=== PATIENT | male | born 1990 | race Caucasian/White ===

== ENCOUNTER 2020-06-06 07:02 | Emergency (ER) | payer SELFPAY ==
[2020-06-06 07:03] VITALS: BP 145/86; PULSE 85; RESP 19; TEMP 36.7; O2SAT 98; BMI 20.9
--- NOTE | 2020-06-06 07:21 | HMH.EDDENT ---
ED Disposition Clinical Impression: Toothache, Dental caries Disposition: Home, Self-Care Condition on Discharge: Good Instructions: DI for Dental Pain Additional Instructions: Keep your appointment with the dentist tomorrow and recommend routine Tylenol and ibuprofen to stay ahead of the pain. Return to the ED for any new or worsening symptoms including facial swelling fever or difficulty swallowing. Referrals: Moy Cowan [Primary Care Provider] - Time of Disposition: 07:29 - Critical Care Critical Care Time: No Attestation: On 06/06/20, the high probability of a clinically significant, sudden or life threatening deterioration of the following system(s) required my full and direct attention, intervention and personal management. The time I documented below is in addition to time spent performing reported procedures but includes the following listed in this critical care notation. Medical Decision Making - Medical Records Medical records reviewed: Yes: I reviewed the patient's medical records. - Burt Inquiry Pt receiving controlled substance: No Vital Signs: 06/06/20 07:03 Temperature 98.0 F Temperature Source Oral Pulse Rate [Right Brachial] 85 Respiratory Rate 19 Blood Pressure [Right Arm] 145/86 H Blood Pressure Mean [Right Arm] 105 Blood Pressure Source [Right Arm] Automatic Cuff 02 Sat by Pulse Oximetry 98 Oxygen Delivery Method Room Air Medical Decision Narrative: 29-year-old male who presents with dental pain from a fractured tooth. Scheduled to see a dentist tomorrow. He has no evidence of abscess either periodontal odontogenic or facial. Patient is overall well-appearing and nontoxic. A bupivacaine dental block was performed and he was given 1 Alzada for pain relief. He was discharged in good condition and instructed to keep his follow-up for the dentist tomorrow Dental HPI - General Chief complaint: Dental/Oral Stated complaint: dental pain Time Seen by Provider: 06/06/20 07:22 Mode of Arrival: Ambulatory Source of Information: Patient Limitations: No Limitations Description of Symptoms (Recalled from ER Triage Doc. by RN): Pt states he has had left, lower back molar (#18) tooth pain since last Friday. Pt has seen a dentist and is scheduled for a root canal tomorrow, however was unable to handle the pain. Pt descbies the pain as sharp, rates 8/10 on CHOIR LEADER, and causing him to not be able to rest. Pt denies any fever. - History of Present Illness HPI Narrative: Left molar tooth pain since last Friday. He has been using filler as instructed in the broken tooth. Still having severe pain at its 8 out of 10 inhibiting his sleep. Denies facial swelling difficulty swallowing or change in voice. No drainage from the tooth. Denies fever chills and body aches. Been using Advil at home for pain relief. Scheduled to see a dentist tomorrow Onset (ago): day(s) Duration: constant Severity: severe Severity scale (1-10): 8 Relieving factors: NSAIDs Exacerbating factors: chewing Context: history of dental caries, poor dental care - Related Data Allergies Allergy/AdvReac Type Severity Reaction Status Date / Time NO KNOWN ALLERGIES - NKA Allergy Mild Uncoded 03/04/17 14:51 [facility] History - Hepatitis A Screen Drug use history?: No High risk sexual behaviors?: No History of sexually transmitted infection?: No Currently employed?: No Childcare worker?: No Do you have indoor plumbing?: Yes Do you have electricity?: Yes Attestation statement:: This patient has been screened for Hepatitis A risk factors. I have reviewed the patient's past medical history: Yes (Denies significant past medical history) ROS Obtained: Yes Systems reviewed as appropriate & no additional complaints Physical Exam - General General appearance: alert, in no apparent distress - Head Head exam: atraumatic, normocephalic - Eye Eye exam: Present: normal appearance - ENT ENT exam: Present: other (
[2020-06-06 07:54] VITALS: BP 140/85; PULSE 87; RESP 18; TEMP 36.7; O2SAT 98
== END 2020-06-06 07:58 | disposition home or self-care (01) ==
PROVIDERS: Emergency Provider Student in an Organized Health Care Education/Training Program; PCP Internal Medicine
DX: K03.81 Cracked tooth (principal); S02.5XXA Fracture of tooth (traumatic), initial encounter for closed fracture; K02.9 Dental caries, unspecified
CPT/HCPCS: 64450; 99281

== ENCOUNTER 2020-06-06 20:55 | Emergency (ER) | payer SELFPAY ==
[2020-06-06 21:02] VITALS: BP 126/76; PULSE 115; RESP 14; TEMP 36.8; O2SAT 98; BMI 22.4
[2020-06-06 21:17] VITALS: BP 112/78; PULSE 112; RESP 18; TEMP 37.1; O2SAT 97; BMI 25.1
--- NOTE | 2020-06-06 21:59 | HMH.EDDENT ---
ED Disposition Clinical Impression: Dental abscess Disposition: Home, Self-Care Condition on Discharge: Good Instructions: DI for Dental Pain Additional Instructions: keep appt with dentist in am Referrals: Moy Cowan [Primary Care Provider] - - Critical Care Critical Care Time: No Attestation: On 06/06/20, the high probability of a clinically significant, sudden or life threatening deterioration of the following system(s) required my full and direct attention, intervention and personal management. The time I documented below is in addition to time spent performing reported procedures but includes the following listed in this critical care notation. Medical Decision Making - Medical Records Medical records reviewed: Yes: I reviewed the patient's medical records. - Burt Inquiry Pt receiving controlled substance: No Vital Signs: 06/06/20 21:02 06/06/20 21:17 Temperature 98.3 F 98.8 F Temperature Source Oral Oral Pulse Rate [Right] 115 H 112 H Respiratory Rate 14 18 Blood Pressure [Right Arm] 126/76 112/78 Blood Pressure Mean [Right Arm] 92 89 Blood Pressure Source [Right Arm] Automatic Cuff Automatic Cuff Blood Pressure Position [Right Arm] Sitting Sitting 02 Sat by Pulse Oximetry 98 97 Oxygen Delivery Method Room Air Medical Decision Narrative: pt has lt mandibular swelling - i feel is most consistent related to dental linfection and not allergic reaction - however pt has appt in dentist in am and is medically stable and on abx Dental HPI - General Chief complaint: Dental/Oral Stated complaint: mOUTH SWOLLEN, POSSIBLE DUE TO MEDICATION Time Seen by Provider: 06/06/20 21:59 Mode of Arrival: Ambulatory Source of Information: Patient, Medical Record Limitations: No Limitations Description of Symptoms (Recalled from ER Triage Doc. by RN): Pt was here this AM and received an injection of Bupivacaine in his left lower gum and has slowly swollen throughout the day. Pt has an appointment tomorrow with a dentist. - History of Present Illness HPI Narrative: swelling lt lower mandible which started this am - pt has appt with dentist in am - pt concerned that swelling could be from local injection last pm - no other allergic sx - no tongue swelling /hives - no airway issues - on abx Onset (ago): hour(s) Duration: other (more swollen than earlier) Severity: moderate Relieving factors: prescription analgesics Context: other (possbile dental infection ) - Related Data Home Medications Medication Instructions Recorded Confirmed No Known Home Medications 06/06/20 06/06/20 Allergies Allergy/AdvReac Type Severity Reaction Status Date / Time NO KNOWN ALLERGIES - NKA Allergy Mild Uncoded 03/04/17 14:51 [facility] History - Hepatitis A Screen Drug use history?: No High risk sexual behaviors?: No History of sexually transmitted infection?: No Currently employed?: No Childcare worker?: No Do you have indoor plumbing?: Yes Do you have electricity?: Yes Attestation statement:: This patient has been screened for Hepatitis A risk factors. I have reviewed the patient's past medical history: Yes Medical History: Denies:: Cancer, Diabetes Mellitus Type 1, Diabetes Mellitus Type 2, MRSA Laterality Cases: Right: Other Fractures: Yes - Social History Smoking Status: Current every day smoker # Packs/Day (cigarettes): 1 Alcohol Intake: current Alcohol Intake Frequency:: a few times a month Occupational Status: employed Housing: house Household Members: children ROS Obtained: Yes All systems reviewed & no additional complaints - Constitutional Constitutional: Denies fever(s) - Eyes Eyes: Denies change in vision - ENT Ears, Nose, Mouth, and Throat: Reports as per HPI, Reports dental pain - Cardiovascular Cardiovascular: Denies chest pain - Respiratory Respiratory: Denies shortness of breath - Gastrointestinal Gastrointestingal: Denies: abdominal pain - Genitourinary Male
[2020-06-06 22:16] VITALS: BP 118/56; PULSE 102; RESP 16; TEMP 37.1; O2SAT 99
== END 2020-06-06 22:18 | disposition home or self-care (01) ==
LOC: UTC 21:01 → ER 21:13
PROVIDERS: Emergency Provider Emergency Medicine; PCP Internal Medicine
DX: K04.7 Periapical abscess without sinus (principal); F17.210 Nicotine dependence, cigarettes, uncomplicated
CPT/HCPCS: 99282

== ENCOUNTER → 2020-12-07 17:46 | Outpatient (CLI) | payer SELFPAY | PROVIDERS: PCP Internal Medicine; Visit Provider Nurse Practitioner | DX: Z20.822 Contact with and (suspected) exposure to COVID-19 (principal); U07.1 COVID-19 | CPT/HCPCS: C9803; U0003; U0005 ==

== ENCOUNTER → 2021-02-23 14:16 | Outpatient (CLI) | payer SELFPAY | LOC: HMH.CTC 14:17 | PROVIDERS: PCP Internal Medicine; Visit Provider Nurse Practitioner | DX: U07.1 COVID-19 (principal) | CPT/HCPCS: C9803; U0003; U0005 ==

== ENCOUNTER 2021-07-18 19:32 | Emergency (ER) | payer OTHER, SELFPAY ==
[2021-07-18 19:39] VITALS: BMI 21.5
[2021-07-18 19:40] VITALS: BP 118/78; PULSE 78; RESP 18; TEMP 36.8; O2SAT 99; BMI 24.0
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
[2021-07-18 20:15] VITALS: BP 118/78; PULSE 78; RESP 18; TEMP 36.8; O2SAT 99
== END 2021-07-18 20:25 | disposition home or self-care (01) ==
PROVIDERS: Emergency Provider Nurse Practitioner; PCP Internal Medicine
DX: S62.339A Displaced fracture of neck of unspecified metacarpal bone, initial encounter for closed fracture (principal)
CPT/HCPCS: 29125; 73110; 73130; 99212; G0463

== ENCOUNTER → 2021-07-24 09:34 | Outpatient (CLI) | payer OTHER, SELFPAY ==
--- NOTE | 2021-07-24 09:37 | XR_ITS ---
FINAL REPORT CLINICAL HISTORY: rt hand pain, F/U SURGERY COMPARISON: 07/18/2021 FINDINGS: RIGHT HAND Three views were obtained. There are postoperative changes in the proximal 1st metacarpal. There is a comminuted fracture of the proximal 5th metacarpal with intra-articular extension. The bony alignment is stable. There are postoperative changes in the distal forearm which is stable. IMPRESSION: Postoperative and chronic appearing findings as detailed above. Reviewed, Interpreted and Dictated by Kwabena Garcia III, MD Transcribed by Marcy Dunlap Authenticated by Kwabena Garcia III, MD on 07/24/2021 11:03:21 AM [facility]
== END ==
PROVIDERS: PCP Internal Medicine; Visit Provider Orthopaedic Surgery
DX: S62.339A Displaced fracture of neck of unspecified metacarpal bone, initial encounter for closed fracture (principal)
CPT/HCPCS: 73130

== ENCOUNTER → 2021-08-07 10:56 | Outpatient (CLI) | payer OTHER, SELFPAY ==
--- NOTE | 2021-08-07 11:00 | XR_ITS ---
FINAL REPORT CLINICAL HISTORY: rt hand injury COMPARISON: July 24, 2021 FINDINGS: AP, lateral and oblique views of the right hand were obtained. There is postoperative change of the base of the 1st metacarpal. Hardware is stable. There is no significant change in a comminuted fracture of the base of the 5th metacarpal. The joint spaces are preserved. The soft tissues are normal. IMPRESSION: No change in the comminuted fracture of the base of the 5th metacarpal. Reviewed, Interpreted and Dictated by Alannah Conner MD Transcribed by Max Roew Authenticated by Alannah Conner MD on 08/07/2021 01:19:11 PM [facility]
== END ==
PROVIDERS: PCP Internal Medicine; Visit Provider Physician Assistant Surgical
DX: S62.346D Nondisplaced fracture of base of fifth metacarpal bone, right hand, subsequent encounter for fracture with routine healing (principal)
CPT/HCPCS: 73130

== ENCOUNTER 2021-08-11 18:47 | Emergency (ER) | payer OTHER, SELFPAY ==
[2021-08-11 18:55] VITALS: RESP 18; TEMP 36.7; O2SAT 98; BMI 21.8
--- NOTE | 2021-08-11 20:45 | HMH.EDUTC ---
[place] Disposition Clinical Impression: Laceration of finger Qualifiers: Encounter type: initial encounter Finger: little finger Damage to nail status: without damage Foreign body presence: without foreign body Laterality: left Qualified Code(s): S61.217A - Laceration without foreign body of left little finger without damage to nail, initial encounter Disposition: Home, Self-Care Condition on Discharge: Good Instructions: DI for Laceration Repair Additional Instructions: Keep wound clean and dry. Watch for signs of infection Follow up with Dr Cowan in the next 2-3 days to recheck range of motion/strength and rule out tendon injury Referrals: Moy Cowan MD [Primary Care Provider] - Time of Disposition: 20:51 Medical Decision Making - Burt Inquiry Pt receiving controlled substance: No Vital Signs: 08/11/21 18:55 Temperature 98.0 F Temperature Source Oral Respiratory Rate 18 02 Sat by Pulse Oximetry 98 Oxygen Delivery Method Room Air [place] HPI - General Stated complaint: AO 08/11@1830 lac to left pinky finger Time Seen by Provider: 08/11/21 19:45 Mode of Arrival: Ambulatory Source of Information: Patient Limitations: No Limitations Description of Symptoms (Recalled from Triage Doc. by RN): PATIENT C/O LACERATION TO LEFT PINKY FINGER HEENT Symptoms (Recalled from RN notes): No Resp Symptoms (Recalled from RN notes): No Skin Symptoms (Recalled from RN notes): Yes MS Symptoms (Recalled from RN notes): No Functional Status (Recalled from RN notes): WNL - History of Present Illness Provider Complaint: Laceration left pinky finger. Patient was getting olive oil out of cabinet above head when glass bottle fell. He tried to grab it as it broke, slicing his left pinky finger. He believes he had a tetanus shot when his son's mother was with him 3 years ago. Onset (ago): hour(s) (2) Location: left, upper extremity Relieving factors: none Exacerbating factors: none Associated symptoms: denies other symptoms Treatments prior to arrival: none - Related Data Previous Rx's Medication Instructions Recorded Ibuprofen [Ibuprofen 800mg 800 mg PO TIDP PRN #20 tab 07/18/21 Tablet] Allergies Allergy/AdvReac Type Severity Reaction Status Date / Time No Known Allergies Allergy Verified 08/07/21 11:48 - Worker's Comp Is this a Worker's Comp case?: No [facility] History - Hepatitis A Screen Attestation statement:: This patient has been screened for Hepatitis A risk factors. I have reviewed the patient's past medical history: Yes Medical History: Denies:: Cancer, Diabetes Mellitus Type 1, Diabetes Mellitus Type 2, MRSA Laterality Cases: Right: Other Fractures: Yes - Social History Smoking Status: Current every day smoker # Packs/Day (cigarettes): 1 Alcohol Intake: current Alcohol Intake Frequency:: a few times a month Occupational Status: employed Housing: house Household Members: children ROS Obtained: Yes All systems reviewed & no additional complaints - Integumentary/Breasts Skin/Breast: Reports as per HPI, Reports other (laceration left pinky finger, palmar surface) Physical Exam - General General appearance: alert, in no apparent distress - Head Head exam: normocephalic - Chest Chest inspection: Present: normal inspection, symmetric chest wall rise - Respiratory Respiratory exam: Present: normal lung sounds bilaterally. Absent: respiratory distress - Cardiovascular Cardiovascular exam: Present: regular rate, normal rhythm - Expanded Upper Extremity Exam Left Hand exam: Present: laceration (palmar surface, 2 cm, DIP joint) Neuromotor exam: Normal: thumb IP flexion, thumb adduction Vascular exam: Normal: capillary refill, radial pulse, ulnar pulse Comment: Copious bleeding Decreased flexion of distal phalange at DIP joint - Neurological Exam Neurological exam: Present: alert, oriented X3 - Psychiatric Psychiatric exam: Present: normal aff
[2021-08-11 20:49] VITALS: BP 0/0; PULSE 90; RESP 18; TEMP 36.7; O2SAT 98
== END 2021-08-11 21:01 | disposition home or self-care (01) ==
PROVIDERS: Emergency Provider Physician Assistant; PCP Internal Medicine
DX: S61.217A Laceration without foreign body of left little finger without damage to nail, initial encounter (principal); W26.0XXA Contact with knife, initial encounter; Z72.0 Tobacco use
CPT/HCPCS: 12001; 99213; G0463

== ENCOUNTER 2021-08-16 14:04 | Outpatient (RCR) | payer OTHER, SELFPAY ==
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
== END 2021-08-16 14:05 | disposition home or self-care (01) ==
LOC: PT 14:04
PROVIDERS: Visit Provider Orthopaedic Surgery
DX: S62.346D Nondisplaced fracture of base of fifth metacarpal bone, right hand, subsequent encounter for fracture with routine healing (principal)
CPT/HCPCS: 97163

== ENCOUNTER → 2021-09-04 10:04 | Outpatient (CLI) | payer OTHER, SELFPAY ==
--- NOTE | 2021-09-04 10:10 | XR_ITS ---
FINAL REPORT CLINICAL HISTORY: hand fracture COMPARISON: August 07, 2021 FINDINGS: RIGHT HAND: 3 views of the right hand were obtained. There is a comminuted fracture of the proximal 5th metacarpal. The fracture line extends into the joint. There are postoperative changes of the proximal 1st metacarpal which is stable. The bony alignment is stable. There is no significant callus formation. There is medial hand soft tissue swelling. There are postoperative changes of the distal forearm. IMPRESSION: Intra-articular fracture of the proximal 5th metacarpal. No significant callus formation. Reviewed, Interpreted and Dictated by Kwabena Garcia III, MD Transcribed by Tresa Villela Authenticated and [facility]
== END ==
PROVIDERS: PCP Internal Medicine; Visit Provider Physician Assistant Surgical
DX: S62.306D Unspecified fracture of fifth metacarpal bone, right hand, subsequent encounter for fracture with routine healing (principal)
CPT/HCPCS: 73130

== ENCOUNTER → 2021-10-16 12:49 | Outpatient (CLI) | payer OTHER, SELFPAY ==
--- NOTE | 2021-10-16 12:53 | XR_ITS ---
FINAL REPORT CLINICAL HISTORY: fracture FOLLOW-UP COMPARISON: 09/04/2021 FINDINGS: Right hand Three views were obtained. There is fracture at the proximal aspect of the 5th metacarpal. There is bony fusion in the more lateral aspect of the fracture. There is lack of bony union in the medial aspect. There are postoperative changes in the 1st metacarpal and distal forearm. Mild degenerative changes are present. No soft tissue abnormality is identified. IMPRESSION: Fracture as above. Reviewed, Interpreted and Dictated by Kwabena Garcia III, MD Transcribed by Marcy Dunlap Authenticated and [facility]
== END ==
PROVIDERS: PCP Internal Medicine; Visit Provider Physician Assistant Surgical
DX: S62.306D Unspecified fracture of fifth metacarpal bone, right hand, subsequent encounter for fracture with routine healing (principal)
CPT/HCPCS: 73130

== ENCOUNTER → 2021-11-13 16:26 | Outpatient (CLI) | payer OTHER, SELFPAY | PROVIDERS: PCP Internal Medicine; Visit Provider Internal Medicine | DX: Z20.822 Contact with and (suspected) exposure to COVID-19 (principal) | CPT/HCPCS: 87275; 87276; C9803; U0003; U0005 ==